=== PATIENT | male | born 1985 | race American Indian/Alaskan Native ===

== ENCOUNTER 2024-10-09 20:47 | Emergency (ER) | payer BC ==
[~2024-10-09] VITALS: Ht 185.4 cm; Wt 88.5 kg
[2024-10-09] MEDS ORDERED: SUBOXONE 8 MG-1 EACH (21:00)
[2024-10-09 23:32] LABS: URINE APPEARANCE Turbid; URINE BILIRRUBIN Negative (NEGATIVE); URINE BLOOD Large; URINE COLOR Dark Yellow; URINE GLUCOSE Negative (NEGATIVE); URINE KETONE Negative (NEGATIVE); URINE LEUKOCYTE Large; URINE NITRATE Positive
[2024-10-09 23:36] LABS: URINE BACTERIA 3920.3 uL (0.0-1933); URINE EPITHELIAL CELLS 18.3 uL (0.0-38.8); URINE RBC 2095.6 uL (0.0-20.8)
[2024-10-09 23:38] LABS: HEMATOCRIT 45.4 % (39.0-48.0); HEMOGLOBIN 15.1 g/dL (13-16.00); MEAN CELL VOLUME 93.7 fL (80.0-100.00); MEAN CORPUSCULAR HEMOGLOBIN 31.2 pg (27.00-32.0); MEAN CORPUSCULAR HGB CONC 33.3 g/dl (32.0-36.0); PLATELET COUNT 286 K/uL (150-450); RED BLOOD COUNT 4.85 M/uL (4.00-6.00); RED CELL DISTRIBUTION WIDTH 13.5 % (11.5-14.5)
[2024-10-09 23:38] LABS: URINE CAST 0.14 uL (0.0-1.40); URINE PROTEIN 300 (NEGATIVE); URINE WBC > 5548.3 uL (0.0-23.2)
[2024-10-09] MEDS ORDERED: CEFTRIAXONE SODIUM 1,000 MG VIAL IM ONE (23:45)
[2024-10-09] MEDS ORDERED: CEFTRIAXONE SODIUM 1,000 MG VIAL ONE (23:59)
[2024-10-10] MEDS ORDERED: DOXYCYCLINE MO100 MG PO (00:12)
[2024-10-10] MEDS ORDERED: PYRIDIUM100 M1 PO (00:12)
== END 2024-10-10 00:18 | disposition home or self-care (01) ==
LOC: ER 20:50
PROVIDERS: Preventive Medicine Public Health & General Preventive Medicine
DX: N39.0 Urinary tract infection, site not specified (principal)